=== PATIENT | female | born 1980 | race Caucasian/White ===

== ENCOUNTER 2023-12-12 16:25 | Emergency (ER) | payer SELFPAY ==
[2023-12-12 16:43] VITALS: BP 114/69; PULSE 63; RESP 18; TEMP 98; BMI 37.5
== END 2023-12-12 18:30 | disposition home or self-care (01) ==
LOC: JER 16:25
DX: S05.02XA Injury of conjunctiva and corneal abrasion without foreign body, left eye, initial encounter (principal); H57.12 Ocular pain, left eye; X58.XXXA Exposure to other specified factors, initial encounter
CPT/HCPCS: 99283-25